=== PATIENT | female | born 1985 | race Caucasian/White ===

== ENCOUNTER 2021-12-21 15:03 | Emergency (ER) | payer OTHER, SELFPAY ==
--- NOTE | ~2021-12-21 | XR_ITS ---
EXAMINATION: XR ANKLE, LEFT CLINICAL INFORMATION: Injury COMPARISON: None TECHNIQUE: AP, lateral, and mortise views of the left ankle. FINDINGS: Bone alignment is normal. No fracture or dislocation is seen. The ankle mortise is normal. There is lateral soft tissue swelling. XR/XR ankle LT min 3V IMPRESSION: Lateral soft tissue swelling. No fracture seen
[2021-12-21 15:29] VITALS: PULSE 72; RESP 18; TEMP 36.8; O2SAT 100; BMI 20.3
--- NOTE | 2021-12-21 16:13 | ED.LOWEXIN ---
HPI - Extremity Injury (Lower) General Chief Complaint: Extremity Injury, Lower Stated Complaint: left ankle swollen and painful Time Seen by Provider: 12/21/21 16:05 Source: patient Mode of arrival: ambulatory Limitations: no limitations History of Present Illness HPI Narrative: Patient presents to the emergency department for evaluation of left ankle pain. She reports just prior to arrival she was stepping to get out of car rolled her ankle. She initially attempted to bear weight but had severe pain to lateral ankle. She then developed swelling to the outside of her ankle. She has a little bit of numbness to her pinky toe. Pain is currently managed with ibuprofen 600 mg orally that she prior to arrival. Pain is only felt with movement of ankle or with weight-bearing. Denies any Past injury to the left leg or ankle. Related Data Allergies Allergy/AdvReac Type Severity Reaction Status Date / Time No Known Allergies Allergy Verified 12/21/21 15:31 Review of Systems Review of Systems: Constitutional: No fever, chills, weakness or fatigue. Skin: No rash or itching. Cardiovascular: No chest pain Respiratory: No shortness of breath or cough Gastrointestinal: No anorexia, nausea, vomiting or diarrhea. No abdominal pain Musculoskeletal: Positive ankle pain. Yes all other systems are reviewed and are negative PMFSH Past Medical History Attestation statement: The following information was validated with the patient. Source: old records reviewed Medical History No known health problems Social History Social History Advance Directives: No Advance Directives Information Provided: No Patient : No Physical Exam Vital Signs: Vital Signs: Last Vital Signs Temp 98.2 F 12/21/21 15:29 Pulse 66 12/21/21 16:49 Resp 18 12/21/21 15:29 BP 103/54 L 12/21/21 16:49 Pulse Ox 100 12/21/21 16:49 BMI result Body Mass Index 20.3 Vital signs have been reviewed as normal and appeared to be correct. Blood pressure normal.? Heart rate normal.? Respiration rate normal. Temperature normal.? Oxygen saturation normal. Appearance: Alert.?Oriented to person, place and time. No acute distress.?Normal affect. Eyes: Pupils equal, round and reactive to light.? ENT: Pharynx normal.?? Neck: Normal inspection.? Neck supple.?? CVS: Heart sounds normal. Normal heart rate and rhythm.? Pulses normal.?? Respiratory: No respiratory distress.? Lung sounds clear to auscultation bilaterally?? Abdomen: Soft and non-tender. Normoactive bowel sounds. Skin: Skin warm and dry.? Normal skin color.? ? Extremities: Left lateral malleolus bruising and swelling, decreased AROM, palpable 2+ DP/PT pulse. No calf ttp? Neuro: Moves all extremities spontaneously. Sensation intact bilaterally. No focal neuro deficits. Ambulates with antalgic gait Course Course Course Narrative: Patient is a 36-year-old female being evaluated for injury to ankle. XR reveals lateral soft tissue swelling, no acute fracture. Will apply Aircast, will provide crutches with training. Declines need for return to work note. Discussed findings with patient, advised rest, ice, compression, elevation, Tylenol and ibuprofen as needed for pain, and follow-up with primary care providers as needed or if symptoms worsen. MDM - Extremity Injury (Lower) Medical Records Attestation: I reviewed the patient's medical records. Imaging Data XR ankle: Radiologist's impression: FINDINGS: Bone alignment is normal. No fracture or dislocation is seen. The ankle mortise is normal. There is lateral soft tissue swelling.? XR/XR ankle LT min 3V IMPRESSION: Lateral soft tissue swelling. No fracture seen Discharge Plan Discharge Clinical Impression: Ankle sprain and strain Patient Disposition: Home, Self-Care Instructions: Ankle Sprain (ED) Additional Instructions: Please follow-up with your primary care provider or return to the Emergency Department as needed for new or worsening symptoms or concerns.
[2021-12-21 16:49] VITALS: BP 103/54; PULSE 66; O2SAT 100
== END 2021-12-21 17:19 | disposition home or self-care (01) ==
PROVIDERS: Emergency Provider Emergency Medicine
DX: S93.402A Sprain of unspecified ligament of left ankle, initial encounter (principal); S96.912A Strain of unspecified muscle and tendon at ankle and foot level, left foot, initial encounter; X50.1XXA Overexertion from prolonged static or awkward postures, initial encounter; Y93.89 Activity, other specified; Y92.810 Car as the place of occurrence of the external cause; Y99.9 Unspecified external cause status
CPT/HCPCS: 73610; 99283